=== PATIENT | female | born 2005 | race African-American/Black ===

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

== ENCOUNTER 2023-01-16 15:26 | Emergency (ER) | payer SELFPAY ==
[2023-01-16] MEDS ORDERED: Ibuprofen 200 MG TAB ONE (15:59)
== END 2023-01-16 16:09 | disposition home or self-care (01) ==
LOC: NAV ERS 15:26
DX: U07.1 COVID-19 (principal)
CPT/HCPCS: 87635; 99283

== ENCOUNTER 2023-07-22 13:23 | Emergency (ER) | payer SELFPAY | END 2023-07-22 14:03 | disposition home or self-care (01) | LOC: NAV ERS 13:23 | DX: R19.7 Diarrhea, unspecified (principal) | CPT/HCPCS: 99283 ==

== ENCOUNTER 2024-01-29 06:39 | Emergency (ER) | payer SELFPAY ==
[2024-01-30 15:19] LABS: SARS-CoV-2 N1 Negative; SARS-CoV-2 N2 Negative; SARS-CoV-2 RNAse P1 Positive; SARS-CoV-2 RNAse P2 Positive
== END 2024-01-29 07:49 | disposition home or self-care (01) ==
LOC: NAV ERS 06:39
DX: B34.9 Viral infection, unspecified (principal)
CPT/HCPCS: 87081; 87430; 87635; 99283

== ENCOUNTER 2025-01-26 18:05 | Emergency (ER) | payer SELFPAY | END 2025-01-26 18:25 | disposition home or self-care (01) | LOC: NAV ERS 18:05 | DX: H65.91 Unspecified nonsuppurative otitis media, right ear (principal) | CPT/HCPCS: 99282 ==